=== PATIENT | female | born 1945 | race Caucasian/White ===

== ENCOUNTER 2017-04-04 21:59 | Emergency (ER) | payer OTHER ==
[~2017-04-04] VITALS: Ht 170.2 cm; Wt 73.9 kg
--- NOTE | ~2017-04-04 | EKG ---
[address] [address] [place] [address] ELECTROCARDIOGRAM REPORT Name: KURTIS FITZGERALD [id number] Admission: 04/04/17 Attend Phys: Discharge: 04/04/17 Date of : 49 Report #: [id number] THIS REPORT FOR: //name// [facility] ED Test Date: 2017-04-04 Test Time: 22:23:06 Pat Name: KURTIS FITZGERALD Department: Room: Gender: F Pss Delivery Professional: Nicola WADE : 1945 Requested By: Sigifredo Seth Order Number: [id number] MD: Garrison Lerner Measurements Intervals [place] Rate: 85 P: 87 AR: 188 QRS: 66 QRSD: 73 T: 62 QT: 368 QTc: 438 Interpretive Statements Sinus rhythm Biatrial enlargement Compared to ECG 09/19/2015 23:07:33 No significant change was found Electronically Signed On 04-05-2017 8:51:01 CDT by Garrison Lerner [email or web address] <ELECTRONICALLY SIGNED> By: Garrison Lerner MD, [facility] 04/05/17 0851 D: 07/2222 22 Garrison Lerner MD, FACC /EPI
[~2017-04-04 21:59] MED LIST: COMPAZINE25 M1 RC; NORCO 5-325 TA1 EACH PO
[2017-04-04 22:25] LABS: ABSOLUTE NEUTROPHILS 5.5 thou/uL (1.4-8.2); BASOPHILS 0.5 % (0.0-2.0); EOSINOPHILS 0.5 % (0.0-3.0); HEMATOCRIT 42.5 % (37.0-47.0); HEMOGLOBIN 14.3 gm/dL (12.0-15.0); LYMPHOCYTES 13.8 % (24.0-44.0); MCH 28.9 pg (26.0-34.0); MCHC 33.8 g/dL (28.0-37.0); MCV 85.5 fL (80.0-100.0); MONOCYTES 7.6 % (1.0-8.0); PLATELET COUNT 353 thou/uL (150-400); POLYS 77.6 % (36.0-66.0); RBC 4.97 mil/uL (4.20-5.00); RDW 13.3 % (10.5-14.5); WBC 7.1 thou/uL (4.0-11.0)
[2017-04-04 22:30] LABS: MANUAL DIFF NO
[2017-04-04 22:32] LABS: CALCIUM 9.6 mg/dL (8.5-10.1); CREATININE 0.9 mg/dL (0.6-1.0); POTASSIUM 3.9 mmol/L (3.5-5.1)
[2017-04-04 22:36] LABS: ALBUMIN 3.1 g/dL (3.4-5.0); TOTAL BILIRUBIN 0.5 mg/dL (<0.1-1.0); TOTAL PROTEIN 7.9 g/dL (6.4-8.2)
[2017-04-04] MEDS ORDERED: PROMS25 WY RECTAL (23:08)
[2017-04-04] MEDS ORDERED: PREDNISONE 20 M20 MG PO (23:08)
[2017-04-04] MEDS ORDERED: AFRIN15 ML NS (23:08)
[2017-04-04 23:23] VITALS: BP 146/77
== END 2017-04-04 23:40 | disposition home or self-care (01) ==
LOC: ER 21:59
PROVIDERS: Emergency Medicine
DX: J01.90 Acute sinusitis, unspecified (principal); E03.9 Hypothyroidism, unspecified; Z90.710 Acquired absence of both cervix and uterus

== ENCOUNTER 2018-08-28 09:07 | Emergency (ER) | payer OTHER ==
[~2018-08-28] VITALS: Ht 175.3 cm; Wt 70.3 kg
--- NOTE | ~2018-08-28 | EKG ---
[place] [address] [employer] [place] [address] ELECTROCARDIOGRAM REPORT Name: KURTIS FITZGERALD [facility]: [facility] [id number] Admission: 08/28/18 Attend Phys: Discharge: 08/28/18 Date of : 49 Report #: [id number] THIS REPORT FOR: //name// [facility] ED Test Date: 2018-08-28 Test Time: 09:42:01 Pat Name: KURTIS FITZGERALD Department: Room: Gender: F Swimming Professor: ... : 1945 Requested By: Li Goode Order Number: [id number] MD: Héctor Proctor Measurements Intervals [place] Rate: 80 P: 79 [place]: 175 QRS: 68 QRSD: 109 T: 42 QT: 383 QTc: 442 Interpretive Statements Sinus rhythm Probable left atrial enlargement Artifact in lead(s) II,III,aVR,aVF,V2,V4,V5 Compared to ECG 04/04/2017 22:23:06 Myocardial infarct finding now present Electronically Signed On 08-28-2018 20:44:38 HARBOR MASTER by Héctor Proctor [email or web address] <ELECTRONICALLY SIGNED> By: Héctor Proctor MD 08/28/18 2044 1 Héctor Proctor MD /EPI
[~2018-08-28 09:07] MED LIST changes: +AFRIN15 ML NS; +PREDNISONE 20 M20 MG PO; +PROMS25 WY RECTAL
[2018-08-28 09:30] LABS: URINE BLOOD NEGATIVE (Negative); URINE CLARITY CLEAR; URINE COLOR YELLOW; URINE GLUCOSE-RANDOM* NEGATIVE (Negative); URINE KETONES TRACE (Negative); URINE LEUKOCYTES NEGATIVE (Negative); URINE NITRITE NEGATIVE (Negative); URINE PROTEIN (DIPSTICK) NEGATIVE (Negative); URINE UROBILINOGEN 0.2 E.U./dl (0.2-1.0)
[2018-08-28 09:31] LABS: ICTOTEST (BILI CONFIRMATORY) Negative (Negative); URINE BILIRUBIN NEGATIVE (Negative)
[2018-08-28 09:48] LABS: BASOPHILS 0.7 % (0.0-2.0); EOSINOPHILS 2.2 % (0.0-3.0); HEMATOCRIT 45.3 % (37.0-47.0); HEMOGLOBIN 14.8 gm/dL (12.0-15.0); LYMPHOCYTES 26.2 % (24.0-44.0); MCH 28.1 pg (26.0-34.0); MCHC 32.8 g/dL (28.0-37.0); MCV 85.8 fL (80.0-100.0); MONOCYTES 7.9 % (1.0-8.0); PLATELET COUNT 308 thou/uL (150-400); RBC 5.27 mil/uL (4.20-5.00); RDW 14.4 % (10.5-14.5); WBC 4.8 thou/uL (4.0-11.0)
[2018-08-28 09:53] LABS: ANION GAP 8 mmol/L (7-16); BUN 14 mg/dL (7-18); CALCIUM 10.4 mg/dL (8.5-10.1); CHLORIDE 105 mmol/L (98-107); CO2 30 mmol/L (21-32); CREATININE 0.9 mg/dL (0.6-1.0); GLUCOSE 95 mg/dL (74-106); POTASSIUM 3.8 mmol/L (3.5-5.1); SODIUM 143 mmol/L (136-145)
[2018-08-28 09:58] LABS: ALBUMIN 3.8 g/dL (3.4-5.0); DIRECT BILIRUBIN < 0.1 mg/dL (<0.1-0.3); LIPASE 87 U/L (73-393); SGOT 28 U/L (15-37); SGPT 29 U/L (30-65); TOTAL BILIRUBIN 0.4 mg/dL (<0.1-1.0); TOTAL PROTEIN 7.1 g/dL (6.4-8.2)
[2018-08-28] MEDS ORDERED: MIRALAX17 GM PO (11:20)
[2018-08-28 11:43] VITALS: BP 136/71
== END 2018-08-28 15:58 | disposition home or self-care (01) ==
LOC: ER 09:07
PROVIDERS: Student in an Organized Health Care Education/Training Program
DX: K57.90 Diverticulosis of intestine, part unspecified, without perforation or abscess without bleeding (principal); E03.9 Hypothyroidism, unspecified; Z90.710 Acquired absence of both cervix and uterus

== ENCOUNTER 2019-11-09 13:53 | Inpatient (IN) | payer OTHER ==
[~2019-11-09] VITALS: Ht 170.2 cm; Wt 74.6 kg
[~2019-11-09 13:53] MED LIST changes: +MIRALAX17 GM PO
[2019-11-09 13:55] VITALS: BP 137/77
[2019-11-09 15:04] LABS: ABSOLUTE NEUTROPHILS 3.3 thou/uL (1.4-8.2); BASOPHILS 0.5 % (0.0-2.0); EOSINOPHILS 0.2 % (0.0-3.0); HEMATOCRIT 46.2 % (37.0-47.0); HEMOGLOBIN 14.8 gm/dL (12.0-15.0); LYMPHOCYTES 16.3 % (24.0-44.0); MCH 28.2 pg (26.0-34.0); MCHC 32.1 g/dL (28.0-37.0); MCV 87.8 fL (80.0-100.0); MONOCYTES 8.8 % (1.0-8.0); PLATELET COUNT 230 thou/uL (150-400); POLYS 74.2 % (36.0-66.0); RBC 5.27 mil/uL (4.20-5.00); RDW 14.3 % (10.5-14.5); WBC 4.4 thou/uL (4.0-11.0)
[2019-11-09 15:05] LABS: CALCIUM 8.7 mg/dL (8.5-10.1); CREATININE 0.9 mg/dL (0.6-1.0); POTASSIUM 3.5 mmol/L (3.5-5.1)
[2019-11-09 15:17] LABS: TROPONIN-I 2.68 ng/mL (<0.06)
--- NOTE | 2019-11-09 16:32 | EKG ---
[facility] [place] [address] [place] [address] ELECTROCARDIOGRAM REPORT Name: KURTIS FITZGERALD Room #: REG [facility]#: [id number] Admission: 11/09/19 Attend Phys: Discharge: Date of : 49 Report #: [id number] THIS REPORT FOR: cc: WALLY - Barbara family physician/PCP WALLY - Barbara family physician/PCP Héctor Proctor MD ~ THIS REPORT FOR: //name// [facility] ED Test Date: 2019-11-09 Test Time: 13:59:52 Pat Name: KURTIS FITZGERALD Department: Room: Gender: F Jig Inspector: : 1945 Requested By: Riaz Laird Order Number: [id number] MD: Héctor Proctor Measurements Intervals [place] Rate: 76 P: 78 [place]: 166 QRS: 78 QRSD: 91 T: 75 QT: 411 QTc: 463 Interpretive Statements Sinus rhythm LAE, consider biatrial enlargement Anteroseptal infarct, age indeterminate Compared to ECG 08/28/2018 09:42:01 Myocardial infarct finding now present Electronically Signed On 11-09-2019 16:31:38 DESKTOP ANALYST by Héctor Proctor [email or web address] <ELECTRONICALLY SIGNED> By: Héctor Proctor MD 11/09/19 1631 1359 1359 Héctor Proctor MD /EPI
--- NOTE | 2019-11-09 16:33 | EKG ---
[facility] [place] [address] [place] [address] ELECTROCARDIOGRAM REPORT Name: KURTIS FITZGERALD Room #: REG [facility]#: [id number] Admission: 11/09/19 Attend Phys: Discharge: Date of : 49 Report #: [id number] THIS REPORT FOR: cc: WALLY - Barbara family physician/PCP WALLY - Barbara family physician/PCP Héctor Proctor MD ~ THIS REPORT FOR: //name// [facility] ED Test Date: 2019-11-09 Test Time: 15:29:45 Pat Name: KURTIS FITZGERALD Department: Room: Gender: F Senior Ios Developer: [facility] : 1945 Requested By: Riaz Laird Order Number: [id number] MD: Héctor Proctor Measurements Intervals [place] Rate: 73 P: 79 [place]: 166 QRS: 80 QRSD: 86 T: 87 QT: 422 QTc: 465 Interpretive Statements Sinus rhythm Left atrial enlargement Anteroseptal infarct, age indeterminate Compared to ECG 08/28/2018 09:42:01 Myocardial infarct finding now present Electronically Signed On 11-09-2019 16:32:07 ART HISTORY PROFESSOR by Héctor Proctor [email or web address] <ELECTRONICALLY SIGNED> By: Héctor Proctor MD 11/09/19 1632 1529 1529 Héctor Proctor MD /EPI
[2019-11-09 17:44] LABS: TROPONIN-I 3.31 ng/mL (<0.06)
[2019-11-09 17:45] VITALS: BP 125/78
[2019-11-09 17:59] VITALS: BP 125/64
[2019-11-09 18:00] LABS: CHOLESTEROL 131 mg/dL (<200); HDL CHOLESTEROL 51 mg/dL (>40); LDL CHOLESTEROL 72 mg/dL (<100); TC:HDL 2.6 Ratio (Not establshd); TRIGLYCERIDE 41 mg/dL (<150); VLDL 8 mg/dL (<40)
[2019-11-09 18:42] VITALS: BP 154/82
[2019-11-09 20:37] VITALS: BP 113/59
[2019-11-09 23:39] VITALS: BP 109/59
--- NOTE | 2019-11-10 01:30 | NUR ---
PT ADMITTED FROM ED WITH CHEST PAIN,POSITIVE TROPONIN AND NAUSEA.A/OX4.ARRIVED TO [facility] VIA CART.TRANSFERS TO BED WITH STEADY GAIT.VSS.ORIENTED TO RM AND UNIT ACTIVITIES.POC REVIEWED AND PT INAGREEMENT.DENIES TAKING ANY MEDS APART FRPM TAMIFLU PRIOR TO THIS VISIT.STATED THAT ON WEDNESDAY AT [facility] WAS DIAGNOSED WITH FLU,GIVEN TAMIFLU,TOOK ONLY TWO DOSES AND STOPPED TAKING BECAUSE TAMIFLU WAS MAKING HER FEEL BAD.PT DECLINED TO HAVE TAMIFLU REORDERED.RAPID FLU COLLECTED,POSITIVE FOR INFLUENZA A,DROPLET ISOLATION IN PLACE.C/O NAUSEA.NAUSEA MED GIVEN.IVF.ASSESSMENT COMPLETED DOCUMENTED.NPO AFTER MIDNOC FOR CATH.WILL CONT TO MONITOR PER POC.
[2019-11-10 04:07] LABS: CALCIUM 8.3 mg/dL (8.5-10.1); CREATININE 0.9 mg/dL (0.6-1.0); POTASSIUM 3.5 mmol/L (3.5-5.1)
[2019-11-10 05:00] VITALS: BP 103/60
--- NOTE | 2019-11-10 08:47 | NUR ---
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 A&0X4, AMB STEADY PER REPORT. EDUCATION GIVEN ON COMPRESSING SITE FIRMLY SHOULD SHE HAVE EMESIS AGAIN AND TO KEEP RLE STILL. SHE'S COMPLYING THUS FAR. SEE SEPARATE INTERVENTIONS FOR ASSESSMENTS. HEMOSTATIS ACHIEVED ABOUT 0825 PER REPORT. ENCOURAGED PT TO USE CALL LIGHT FOR ANY NEEDS. TELE PLACED BACK ON PT
[2019-11-10 08:57] VITALS: BP 135/77
[2019-11-10 09:04] VITALS: BP 135/77
--- NOTE | 2019-11-10 10:13 | 2DMMODE ---
[facility] [address] [place] [address] 2 D/M-MODE ECHOCARDIOGRAM Name: KURTIS FITZGERALD Room #: 208-P ADM IN M.R.#: [id number] Admission: 11/09/19 Attend Phys: Artur Munoz Discharge: Date of : 49 Report #: [id number] THIS REPORT FOR: cc: FAM - No family physician/PCP FAM - No family physician/PCP Garrison Lerner MD [facility] ~ APPROVED REPORT Study performed: 11/10/2019 09:13:55 EXAM: Comprehensive 2D, Doppler, and color-flow Echocardiogram Patient Location: Bedside Room #: 208 Status: routine BSA: 1.86 HR: 71 bpm BP: 135/77 mmHg Rhythm: NSR Other Information Study Quality: Adequate/limited mobility post heart cath. Indications NSTEMI, Takotsubo cardiomyopathy. 2D Dimensions RVDd: 30.60 mm IVSd: 8.90 (7-11mm) LVOT Diam: 21.59 (18-24mm) LVDd: 41.63 mm PWd: 9.19 (7-11mm) Ascending Ao: 29.32 (22-36mm) LVDs: 31.52 (25-40mm) Aortic Root: 31.21 mm Volumes Left Atrial Volume (Systole) Single Plane 4CH: 40.97 mL Single Plane 2CH: 29.09 mL LA ESV Index: 20.00 mL/m2 Aortic Valve AoV Peak Bib.: 0.96 m/s AO Peak Gr.: 3.72 mmHg LVOT Max P.15 mmHg LVOT Max V: 0.73 m/s PILAR Vmax: 2.[address] [facility] [address] [place] [address] 2 D/M-MODE ECHOCARDIOGRAM Name: KURTIS FITZGERALD Room #: 208-P [facility] IN [facility].#: [id number] Admission: 11/09/19 Attend Phys: Artur Brasher Discharge: Date of : 49 Report #: [id number] Mitral Valve E/A Ratio: 0.7 MV Decel. Time: 292.93 ms MV E Max Bib.: 0.47 m/s MV A Bib.: 0.63 m/s MV PHT: 84.95 ms IVRT: 107.27 ms Pulmonary Valve PV Peak Bib.: 0.64 m/s PV Peak Gr.: 1.62 mmHg Tricuspid Valve TR Peak Bib.: 1.95 m/s RAP Estimate: 5.00 mmHg TR Peak Gr.: 15.18 mmHg PA Pressure: 20.00 mmHg Left Ventricle The left ventricle is normal size. Distal septal and apical hypokinesis There is normal left ventricular wall thickness. Left ventricular systolic function is moderately decreased. LVEF is 35-40%. Mild diastolic dysfunction is present (impaired relaxation pattern). Right Ventricle The right ventricle is normal size. The right ventricular systolic function is normal. Atria The left atrium size is normal. The right atrium size is normal. Aortic Valve The aortic valve is normal in structure. No aortic regurgitation is present. There is no aortic valvular stenosis. Mitral Valve The mitral valve is normal in structure. There is no mitral valve regurgitation noted. Tricuspid Valve The tricuspid valve is normal in structure. Trace tricuspid regurgitation. Estimated PAP is 20mmHg. Pulmonic Valve The pulmonary valve is normal in structure. Mild pulmonic [facility] [place] [address] 2 D/M-MODE ECHOCARDIOGRAM Name: KURTIS FITZGERALD Room #: 208-P ADM IN M.R.#: [id number] Admission: 11/09/19 Attend Phys: Artur Brasher Discharge: Date of : 49 Report #: [id number] regurgitation. Great Vessels The aortic root is normal in size. The ascending aorta is normal in size. IVC is normal in size and collapses >50% with inspiration. Pericardium There is no pericardial effusion. <Conclusion> Left ventricular systolic function is moderately decreased. Distal septal and apical hypokinesis LVEF is 35-40%. Findings could represent Takutsubo cardiomyopathy Mild diastolic dysfunction The aortic valve is normal in structure. No aortic regurgitation or stenosis. The mitral valve is normal in structure. No mitral valve regurgitation Trace tricuspid regurgitation. Estimated pulmonary artery pressure of 20mmHg. There is no pericardial effusion. <ELECTRONICALLY SIGNED> By: Garrison Lerner MD, FACC 02/21/20 1012 1012 1012 Garrison Lerner MD, [facility] /INF
[2019-11-10 11:15] VITALS: BP 112/57
--- NOTE | 2019-11-10 13:08 | EKG ---
[facility] [place] [place] [address] ELECTROCARDIOGRAM REPORT Name: KURTIS FITZGERALD Room #: 208-P ADM IN M.R.#: [id number] Admission: 11/09/19 Attend Phys: Artur Munoz Discharge: Date of : 49 Report #: [id number] THIS REPORT FOR: cc: WALLY - Barbara family physician/PCP WALLY - No family physician/PCP Héctor Proctor MD ~ THIS REPORT FOR: //name// [facility] Test Date: 2019-11-10 Test Time: 08:55:01 Pat Name: KURTIS FITZGERALD Department: Room: 208 Gender: F Formstone Fitter: Saranya GRIDER : 1945 Requested By: Favina Meyer Order Number: [id number] MD: Héctor Proctor Measurements Intervals [place] Rate: 67 P: 77 [place]: 185 QRS: 68 QRSD: 87 T: 109 QT: 461 QTc: 487 Interpretive Statements Sinus rhythm NO ischemic changes Electronically Signed On 11-10-2019 13:07:11 BOILER FIREMAN by Héctor Proctor [email or web address] <ELECTRONICALLY SIGNED> By: Héctor Proctor MD 11/10/19 1307 0855 Héctor Proctor MD /DEBRA
--- NOTE | 2019-11-10 16:56 | CATHLAB ---
[facility] [place] [address] [place] [address] INVASIVE PROCEDURE REPORT Name: KURTIS FITZGERALD Room #: 208-P ADM IN M.R.#: [id number] Admission: 11/09/19 Attend Phys: Artur Culp Jocelyn Discharge: Date of : 49 Report #: [id number] THIS REPORT FOR: cc: FAM - No family physician/PCP FAM - No family physician/PCP Favian Meyer MD [facility] ~ APPROVED REPORT Study performed: 11/10/2019 07:08:31 Patient Details Patient Status: In-Patient Room #: The patient is a 74 year-old female Event Personnel Favian Meyer Demolition Crane Operator, Paulina Cunningham RN RN, Danna Tristan RTR, ARIELA Brown, Argenis Fisher Monitor Procedures Performed Art Access - R femoral artery* Left Heart Cath w/or w/o Coronaries [id number] [facility] Aortogram Abdominal Peripheral Angio 288574 Aortogram Abdominal Peripheral Angio 972158 Hemostasis w/ Mynx 62468 Initial Mod Sed Same Phys/QHP Gr5y 600441 Indication Chest pain Procedure Narrative The Right Groin^ was infiltrated with 1% Lidocaine subcutaneous anesthesia. A PINNACLE 6FR Sheath #[id number] sheath was inserted into the RFA 6F^. Coronary angiography was performed using coronary diagnostic catheters. The right coronary system was accessed and visualized with a JR4 catheter. The left coronary system was accessed and visualized with a JL4 catheter. The left ventricle was accessed and visualized with a STR PIG catheter. Left ventriculogram was performed in 30 degree projection. There was no hematoma. Intraoperative Conscious Sedation Sedation start time: 755 Case end Time: 820 Fentanyl 100 mcg Versed 2 mg Fluoro Time: 21.47 minutes [facility] [address] [place] [address] INVASIVE PROCEDURE REPORT Name: KURTIS FITZGERALD Room #: 208-P [facility] IN [facility]#: [id number] Admission: 11/09/19 Attend Phys: Artur Brasher Discharge: Date of : 49 Report #: [id number] Dose: DAP 7.20 cGycm2 216 mGy Contrast Type and Amount: Omnipaque 105 ml Hemodynamics The left ventricular pressure is 123/10 mmHg with a mean of mmHg. The left ventricular end diastolic pressure is 18 mmHg. Conclusion #1 normal left ventricular size with anterior and inferior apical hypokinesis apical ballooning EF 45-50% #2 abdominal aortogram mild aortic plaquing no aneurysm. Renal arteries are patent. #3 normal coronary anatomy and a right dominant system. No occlusive disease. Recommendations and plan: Continue aggressive risk factor modification. 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 With this apical ballooning. Slight troponin elevation. Patient hemodynamically stable and pain-free. Transfer to CCU for initiation of beta marisol and afterload reducers. <ELECTRONICALLY SIGNED> By: Favian Meyer MD, FAC 11/10/19 1654 53 53 Favian Meyer MD, FAC /INF
[2019-11-10 17:30] VITALS: BP 127/77
[2019-11-10 21:00] VITALS: BP 137/60
--- NOTE | 2019-11-11 05:06 | NUR ---
ASSUMED PT CARE AT 1945. PT IS ALERT AND ORIENTED. NO SIGN OF DISTRESS NOTED IN PT. RIGHT GROIN SITE IS IN TACT. DENIES ANY PAIN. CALL LIGHT WITHIN REACH. ASSESSMENT COMPLETED AND DOCUMENTED. VITAL SIGNS STABLE. SCHEDULED MEDS ADMINISTERED TO PT. DENIES ANY FURTHER NEEDS AT THIS TIME.
[2019-11-11 05:54] VITALS: BP 126/65
[2019-11-11] MEDS ORDERED: METOPROLOL SUCC25 M1 PO (08:22)
[2019-11-11] MEDS ORDERED: COZAAR 25 MG TA25 M1 PO (08:22)
--- NOTE | 2019-11-11 08:22 | NUR ---
ASSUMED CARE OF PT APPROX 0715, AMB INDEPENDENTLY, A&0X4, C/O GENERALIZED ALL OVER PAIN, MINIMAL; GAVE HER PT EDUCATION ON METOPROLOL AND ON POSSIBLE D/C AND PROCESS. SEE SEPARATE INTERVENTIONS FOR ASSESSMENTS. CARDIAC MONITORED. ENCOURAGED HER TO USE CALL LIGHT FOR ANY NEEDS
[2019-11-11 10:05] VITALS: BP 126/65
== END 2019-11-11 12:30 | disposition home or self-care (01) | DRG 281 ==
LOC: ER 13:53 → 2N 17:36 → EROBS 17:36 → 2N 18:45
PROVIDERS: Emergency Medicine; Internal Medicine Cardiovascular Disease; ADMIT Hospitalist
PROC: B2111ZZ Fluoroscopy of Multiple Coronary Arteries using Low Osmolar Contrast (ICD-10-PCS; principal; 2019-11-09)
PROC: B4101ZZ Fluoroscopy of Abdominal Aorta using Low Osmolar Contrast (ICD-10-PCS; principal; 2019-11-09)
PROC: B2151ZZ Fluoroscopy of Left Heart using Low Osmolar Contrast (ICD-10-PCS; principal; 2019-11-09)
PROC: 4A023N7 Measurement of Cardiac Sampling and Pressure, Left Heart, Percutaneous Approach (ICD-10-PCS; principal; 2019-11-09)
DX: I21.4 Non-ST elevation (NSTEMI) myocardial infarction (principal); I51.81 Takotsubo syndrome; E03.9 Hypothyroidism, unspecified; E78.00 Pure hypercholesterolemia, unspecified; J11.1 Influenza due to unidentified influenza virus with other respiratory manifestations; G47.00 Insomnia, unspecified; R63.0 Anorexia; I25.10 Atherosclerotic heart disease of native coronary artery without angina pectoris; Z79.899 Other long term (current) drug therapy; Z90.710 Acquired absence of both cervix and uterus; Z88.8 Allergy status to other drugs, medicaments and biological substances; Z82.49 Family history of ischemic heart disease and other diseases of the circulatory system; Z68.25 Body mass index [BMI] 25.0-25.9, adult
CPT/HCPCS: 10081